=== PATIENT | female | born 2000 | race Caucasian/White ===

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

== ENCOUNTER 2019-01-26 15:15 | Outpatient (RCR) | payer MEDICAID | END 2019-04-01 | disposition home or self-care (01) | LOC: MKS.ESL.PT | DX: S72.91XA Unspecified fracture of right femur, initial encounter for closed fracture (principal) ==

== ENCOUNTER → 2019-03-23 | Outpatient (CLI) | payer MEDICAID ==
[2019-03-23 16:54] LABS: COLLECTION METHOD CLEAN CATCH
[2019-03-23 17:21] LABS: MUCOUS Present /lpf; PH 5 (5-8); SQUAMOUS EPITHELIAL 0-2 /hpf; URINE APPEARANCE Cloudy; URINE BACTERIA Rare /hpf; URINE BILIRUBIN Negative (NEGATIVE); URINE BLOOD 1+ (NEGATIVE); URINE CALCIUM OXALATE CRYSTAL Present /hpf; URINE COLOR Amber; URINE GLUCOSE Negative (NEGATIVE); URINE KETONE Negative (NEGATIVE); URINE LEUKOCYTE ESTERASE 2+ (NEGATIVE); URINE NITRATE Positive (NEGATIVE); URINE PROTEIN(semi-quant) 2+ (NEGATIVE); URINE UROBILINOGEN Negative (NEGATIVE); URINE WBC >50 /hpf
== END ==
LOC: ZCOL.LAB 16:41
PROVIDERS: Family Medicine
DX: R11.0 Nausea (principal); R10.9 Unspecified abdominal pain